=== PATIENT | female | born 1960 | race Caucasian/White ===

== ENCOUNTER → 2017-05-15 | Day surgery (SDC) | payer BC ==
[~2017-05-15] VITALS: Ht 160 cm; Wt 61.5 kg
[~2017-05-15] MED LIST: ACETAMINOPHEN/HYDROcodone 325 MG/5 MG TAB ONE; ALBUAER3 INH; AMPICILLIN/SULBAC 3 GM/NS 100 ML IV PRN; CEFD300C PO; CHLORHEXIDINE GLUCONATE 2 % 1 PACK (2 CLOTHS) TOPICAL PRN; CIPR0.3S EACH EAR; CLAR10TA7 PO; FAMOTIDINE 20 MG/2 ML VIAL ONE; FLUT50SP EACH NARE; HYDR-3516 PO; IBUP-232 PO; INSULIN HUMAN REGULAR 1,000 UNITS/10 ML VIAL SQ PRN; LACTATED RINGER'S 1000 ML INJ 1,000 ML IV ONE; LACTATED RINGER'S 1000 ML IV PRN; LIDOCAINE 1%/EPINEPHrine 1:100,000 SOLN 20 ML VIAL ONE; METOPROLOL TARTRATE 25 MG TAB PO PRN; MIDAZOLAM HCL 2 MG/2 ML VIAL ONE; NEOSTIGMINE 3 MG/3 ML SYR IV ONE; ONDANSETRON HCL 4 MG/2 ML VIAL IV PUSH ONE; OXYMETAZOLINE HCL 0.05% 15 ML NASAL SPRAY ONE; POVIDONE IODINE 5% (ANTISEPSIS KIT) 4 APPLICATIONS EACH NARE PRN; PROPOFOL 200 MG/20 ML AMP IV ONE; SODIUM CHLORID 0.9% 500 ML IV PRN; TOBRO EACH EYE; fentaNYL CITRATE 250 MCG/5 ML AMP ONE
[2017-05-15 09:52] VITALS: BP 131/80; PULSE 80; RESP 18; TEMP 98.2; O2SAT 98
--- NOTE | 2017-05-15 12:12 | EKG ---
Date Performed: 05/15/2017 Time Performed: 10:25:19 PTAGE: 57 years EKG: Sinus rhythm WITH SHORT OK INTERVAL BORDERLINE ECG NO PREVIOUS TRACING DOCTOR: Donaldo Baker Interpretating Date/Time 05/15/2017 12:11:27
[2017-05-15 15:34] VITALS: PULSE 99
[2017-05-15 16:30] VITALS: TEMP 98
[2017-05-15 17:35] VITALS: BP 148/84; PULSE 80; RESP 14; O2SAT 98
--- NOTE | 2017-05-24 14:04 | MP ---
cc: SATYA ONEILL M.D. DATE OF SURGERY 05/15/[address] Jaime Oneill PREOPERATIVE DIAGNOSIS 1. Nasal airway obstruction 2. Nasal septal deviation 3. Left sinonasal polyposis 4. Chronic left pansinusitis. POSTOPERATIVE DIAGNOSIS 1. Nasal airway obstruction 2. Nasal septal deviation 3. Left sinonasal polyposis 4. Chronic left pansinusitis. OPERATION PERFORMED 1. Open repair nasal septal fracture. 2. Bilateral submucosal resection of inferior turbinates 3. Left endoscopic total ethmoidectomy. 4. Left endoscopic maxillary antrostomy with removal of maxillary sinus tissue 5. Left endoscopic exploration of frontal sinus duct with balloon dilation 6. Left endoscopic exploration of sphenoid sinus with debridement of sphenoid sinus tissue INDICATIONS Documented in the history and physical. PROCEDURE IN DETAIL The patient was taken to OR #2 and placed in the supine position. Following induction of general anesthesia and intubation, the nose was packed bilaterally with cotton pledgets saturated in 0.05% Oxymetazoline. Nasal septum and inferior turbinates were injected with a total of 8 mL of 1% Xylocaine with epinephrine 1:100,000. She was then prepped and draped for surgery. Nasal packing was removed and a hemitransfixion incision was made in the left nasal vestibule. Through this incision, the mucosa of septum was elevated bilaterally as far as the rostrum of the sphenoid. This was followed by removal of a cumulative area of 2 x 2.5 cm of very thick, twisted and irregular quadrangular cartilage with evidence of old fracture. This was completed in a piecemeal fashion using Walsh elevator and Galindo Chinchilla forceps. Next, the bony septum was removed using a Galindo Chinchilla forceps and the Elliot septal forceps. The maxillary crest was then removed using a 6-mm Shawna chisel. The incision was then closed with a running suture of 4-0 chromic and the mucosal layers of septum were approximated to each other with a quilting stitch of 4-0 plain gut. Inferior turbinates were then fractured out medially. Left side was addressed first and a stab incision was made in the anterior end of the left inferior turbinate. Through this incision, using a Walsh elevator a submucosal pocket was developed along the medial surface of the conchal bone and then using the Olympus 2.9 mm turbinate blade which was advanced into the pocket and then as it was withdrawn it was activated debriding soft tissue from the medial surface of the conchal bone. The instrument was then re-advanced into the pocket and, as it was withdrawn a second time, the bipolar cautery was activated. Additional cautery was provided to the incision site on the anterior end of the turbinate. The right inferior turbinate was operated in identical fashion. The inferior turbinates were then relateralized to the lateral nasal wall. Attention was directed to the left paranasal sinuses. There was some polypoid tissue prolapsing from the left middle meatus and was replacing the mucosa of the left middle turbinate. This area was injected with another 6 mL of lidocaine and epinephrine solution and the middle turbinate was then amputated using the through cutting Blakesley forceps and the power microdebrider. This exposed the ethmoid bulla which was also replaced by polypoid tissue. A large sample of this polypoid tissue was then grasped using the Blakesley forceps and was passed off the field for histological examination labeled left sinus contents. The remainder of the operation was done using blunt dissection and the power microdebrider and the ethmoid and maxillary sinuses. The ethmoid sinuses were bluntly penetrated and debrided using the power debrider. This was carried back as far as the basal lamella of middle turbinate. This was then reduced medially to laterally and the posterior ethmoids were entered. These were also debrided of very heavily inflamed mucosa and allergic fungal mucin filling these cavities. This was carried back as far as the rostrum of the sphenoid. Bleeding was fairly heavy during this process and the ethmoids were packed with cotton pledgets saturated in Oxymetazoline. While the maxillary sinus was addressed, the ostium was enlarged using Stammberger forceps and the power microdebrider. The cavity was then irrigated of purulent material, allergic mucin and polypoid tissue. The cavity was irrigated with 200 mL of saline to further flush debris from the left maxillary sinus. The frontal duct was then addressed using the Acclarent balloon technique. The guidewire was advanced into the duct and then the balloon was advanced over the guidewire into the frontal sinus and it was inflated to a pressure of 12 atmospheres at three levels at the superior midpoint and inferior point of the frontal duct at the junction with the ethmoid sinuses. The balloon was then removed and the duct was examined using a 70 degrees scope was irrigated with curved suction and saline removing allergic fungal mucin from the frontal duct. Lastly on the left side, the sphenoid sinus was explored using Acclarent balloon technique. The balloon was placed into the sphenoid ostium and was inflated to a pressure of 12 atmospheres and then using a 0 degrees scope and straight suction, the sphenoid sinus was debrided of polypoid tissue and allergic fungal mucin. The left side sinus was then once again irrigated with iced saline. It was filled with Stammberger foam into the ethmoid and maxillary sinuses. The inferior one-half of the nasal vault was then filled with the 5.5 cm rapid rhino balloons and each side filled with 5 mL of air and the procedure was terminated. The patient was then reversed from anesthesia and taken to recovery in good condition. There were no complications. Blood loss was 800 mL. MD KARIS Russo/ERIKA /1:45 PM /10:51 AM
== END | disposition home or self-care (01) ==
LOC: PHSDC 08:59
PROVIDERS: ATTEND Otolaryngology
DX: J01.90 Acute sinusitis, unspecified (principal); J32.9 Chronic sinusitis, unspecified; J34.2 Deviated nasal septum; Z01.810 Encounter for preprocedural cardiovascular examination
CPT/HCPCS: 00160; 21335; 30140; 31255; 31267; 31276; 31288; 88305; 93005; J0295; J2250; J2405; J2710; J3010; J7120; 88311